=== PATIENT | female | born 1975 | race Caucasian/White ===

== ENCOUNTER 2018-04-26 22:04 | Inpatient (IN) | payer BC ==
[2018-04-26] MEDS ORDERED: Morphine 4 MG/ML VIAL SLOW IVP PRN (23:08)
[2018-04-26] MEDS ORDERED: Ondansetron PF 4 MG/2 ML Vial IVP PRN (23:09)
[2018-04-26 23:11] VITALS: BMI 22.7
[2018-04-26] MEDS ORDERED: Pantoprazole 40 MG VIAL IVP SCH (23:15)
[2018-04-26] MEDS: D5 1/2 NS w/20 mEq KCL 1,000 ML IV SCH (23:19)
[2018-04-26] MEDS: Morphine 4 MG/ML VIAL SLOW IVP PRN (23:20)
[2018-04-27] MEDS: Morphine 4 MG/ML VIAL SLOW IVP PRN (05:25)
[2018-04-27] MEDS: D5 1/2 NS w/20 mEq KCL 1,000 ML IV SCH (05:26)
--- NOTE | 2018-04-27 08:58 | RAD ---
KUB: INDICATION: Partial small bowel obstruction. COMPARISON: None. FINDINGS: The bowel gas pattern is nonspecific but without overt evidence of obstruction. There is enteric con trast within the colon. There is IV contrast within the bladder. Lung bases are clear. No acute osseous abnormality is evident. There is dextroscoliosis involving t he spine. IMPRESSION: 1. No definite obstructive pattern seen involving the small bowel. There is postsurgical change of a prior gastric bypass. 2. Dextroscoliosis. POS: TPC
[2018-04-27] MEDS ORDERED: Acetaminophen 325 MG/10.15 ML UDCUP PO PRN (09:48)
[2018-04-27 10:55] LABS: #Eosinphils 0.1 thou/uL (0.0-0.7); #Lymphocytes 1.8 thou/uL (1.20-3.40); #Monocytes 0.5 thou/uL (0.11-0.59); #Neutrophils 5.8 thou/uL (1.40-6.50); %Basophils 0.1 % (0.0-1.0); %Eosinophils 1.4 % (0.0-10.0); %Lymphocytes 21.3 % (21.0-51.0); %Monocytes 6.4 % (0.0-10.0); %Neutrophils 70.7 % (42.0-75.0); Mean Corpuscular HGB CONC 32.8 g/dL (32.0-36.0); Mean Corpuscular Hemoglobin 31.4 pg (27.0-31.0); Mean Corpuscular Volume 95.7 fL (78.0-98.0); Mean Platelet Volume 6.9 fL (7.4-10.4); Platelet Count 299 thou/uL (130-400); RBC Distribution Width 11.1 % (11.5-14.5); Red Blood Cell (RBC) Count 4.12 mill/uL (4.20-5.40); White Blood Cell (WBC) Count 8.2 thou/uL (4.8-10.8)
[2018-04-27 11:15] LABS: ALT (SGPT) 16 U/L (8-55); AST (SGOT) 12 U/L (5-34); Albumin 3.7 g/dL (3.5-5.0); Alkaline Phosphatase 95 U/L (40-150); Anion Gap 10 mmol/L (10-20); BUN (Urea Nitrogen) 6 mg/dL (7.0-18.7); Bilirubin, Direct 0.1 mg/dL (0.1-0.3); Bilirubin, Total 0.3 mg/dL (0.2-1.2); Calc. Creatinine Clearance 110 mL/min (70-130); Carbon Dioxide 27 mmol/L (22-29); Chloride 108 mmol/L (98-107); Estimated GFR-MDRD Greater than 90; Glucose 103 mg/dL (70-105); Lipase 47 U/L (8-78); Potassium 4.7 mmol/L (3.5-5.1); Protein, Total 6.2 g/dL (6.0-8.3); Sodium 140 mmol/L (136-145)
[2018-04-27] MEDS ORDERED: Ketorolac Tromethamine 30 MG/ML VIAL IVP SCH (12:00)
--- NOTE | 2018-04-27 12:08 | HP ---
CHIEF COMPLAINT: Epigastric abdominal pain. HISTORY OF PRESENT ILLNESS: This is a 42-year-old female, who underwent a laparoscopic Ezekiel-en-Y gastric bypass in July of 2016. She was doing well, but had not been here for followup since surgery. She said that after eating a meal, she developed severe cramps in her epigastrium followed by nausea and vomiting. She went to one of the freestanding emergency rooms at [facility]. A CT scan was obtained and they gave her a full oral contrast load, it caused severe pain and vomiting. The CT scan showed some dilatation of her Ezekiel limb. Her last bowel movement was yesterday. She denies any dark urine, light stools, any blood or bile in her vomit. PAST MEDICAL HISTORY: Significant for otherwise being healthy. PAST SURGICAL HISTORY: She had PE tubes, rotator cuff surgery, hernia repair, bilateral tubal ligation, tonsil and adenoidectomy and the Ezekiel-en-Y gastric bypass. Her. MEDICATIONS: Include omeprazole and bariatric advantage vitamins. ALLERGIES: SHE HAS AN ALLERGY TO PENICILLIN. SOCIAL HISTORY: She is . 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 No tobacco or alcohol. PHYSICAL EXAMINATION: VITAL SIGNS: Temperature 97.7, pulse 57, and blood pressure 102/64. GENERAL: She looks good. She says she feels fine now. Pain is completely resolved. HEENT: No jaundice. LUNGS: Clear. HEART: Regular rate and rhythm. ABDOMEN: Soft, nondistended. Normal bowel sounds. Nontender. Incisions have healed. No hernias. EXTREMITIES: Unremarkable. LABORATORY DATA: Electrolytes; glucose 93, BUN 9, creatinine 0.7. Electrolytes are fine. Liver function tests were normal. White count 9.8, H and H of 13 and 39, and platelet count 348. IMAGING DATA: Review of the CT scan did show some dilatation of the Ezekiel limb. We have repeated a KUB and the contrasted all gone to the colon. ASSESSMENT: Possible stricture at the jejunojejunostomy, but she is doing okay now. PLAN: We will give her some sips of clear liquids and see how she does with that. We will repeat her lab and x-ray. Job ID: [id number]
[2018-04-27 16:46] VITALS: BP 103/67; TEMP 97.8
[2018-04-27] MEDS ORDERED: Pantoprazole 40 MG VIAL IVP SCH (21:00)
--- NOTE | 2018-04-28 02:15 | DIS ---
DATE OF ADMISSION: 04/26/2018 DATE OF DISCHARGE: 04/27/2018 DISCHARGE DIAGNOSIS: Partial small-bowel obstruction, resolved. PROCEDURES DURING ADMISSION: KUB, IV hydration. HOSPITAL COURSE: The patient was admitted, put on bowel rest. KUB was repeated. All the dye went to her colon. She felt better. Diet advanced. She is now discharged home on a liquid diet. Resume home medications. Will follow up with me in 2 weeks. Job ID: [id number]
== END 2018-04-27 17:31 | disposition home or self-care (01) | DRG 390 ==
LOC: SURG A 22:35
PROVIDERS: ADMIT Surgery; ATTEND Surgery
DX: K56.600 Partial intestinal obstruction, unspecified as to cause (principal)
CPT/HCPCS: 36415; 74018; 80048; 80076; 83690; 85025; C9113; J1885; J2270; J3411; J7050